=== PATIENT | female | born 1990 | race Two or more races ===

== ENCOUNTER 2020-02-11 18:18 | Inpatient (IN) | payer OTHER ==
[~2020-02-11] VITALS: Ht 160 cm; Wt 68.9 kg
[2020-02-11] MEDS ORDERED: PRENATAL TABLE1 EAC1 PO (20:00)
[2020-02-15] MEDS ORDERED: NAPR500T14 PO (13:35)
[2020-02-15] MEDS ORDERED: CODE1TAB37 PO (13:35)
[2020-02-15] MEDS ORDERED: DOCUSATE SODIU100 MG PO (13:35)
== END 2020-02-15 14:31 | disposition home or self-care (01) | DRG 788 ==
LOC: LDR 18:18 → OB/GYN 18:18
PROVIDERS: ADMIT Obstetrics & Gynecology; ATTEND Obstetrics & Gynecology
PROC: 4A1HXCZ Monitoring of Products of Conception, Cardiac Rate, External Approach (ICD-10-PCS; 2020-02-11)
PROC: 3E033VJ Introduction of Other Hormone into Peripheral Vein, Percutaneous Approach (ICD-10-PCS; 2020-02-12)
PROC: 10D00Z1 Extraction of Products of Conception, Low, Open Approach (ICD-10-PCS; principal; 2020-02-12 21:00)
DX: O82 Encounter for cesarean delivery without indication (principal); O61.0 Failed medical induction of labor; Z82.8 Family history of other disabilities and chronic diseases leading to disablement, not elsewhere classified; Z37.0 Single live birth; Z3A.38 38 weeks gestation of pregnancy; Z22.330 Carrier of Group B streptococcus